=== PATIENT | male | born 1960 | race African-American/Black ===

== ENCOUNTER 2016-10-28 19:19 | Emergency (ER) | payer OTHER ==
[~2016-10-28] VITALS: Ht 177.8 cm; Wt 82.0 kg
[~2016-10-28 19:19] MED LIST: AMLO5TAB4 PO; ASPI-1159 PO; HYOS0.122 PO; INSU3INS6 SUBCUT; METO-293 PO; OMEP20CA10 PO; ONDA4TAB5 PO; SIMV40TA5 PO
[2016-10-28] MEDS ORDERED: SODIUM CHLORIDE 0.9% 1,000 ML IV ONE (19:39)
[2016-10-28 20:04] LABS: BASOPHILS % 0.4 % (0.0-2.0); EOSINOPHILS % 0.6 % (0.0-5.0); HEMATOCRIT. 41.1 % (42.0-52.0); HEMOGLOBIN. 13.8 g/dL (14.0-18.0); LYMPHOCYTES % 24.6 % (20.0-50.0); MEAN CORPUSCULAR HEMOGLOBIN 29.3 pg (28.0-32.0); MEAN CORPUSCULAR VOLUME 87.1 fL (80.0-94.0); MEAN PLATELET VOLUME 7.2 fl (7.4-10.4); MONOCYTES % 4.3 % (2.0-8.0); NEUTROPHILS % 70.1 % (40.0-76.0); PLATELET 204 x1000/uL (130-400); RED BLOOD CELL COUNT 4.72 mill/uL (4.7-6.1); RED CELL DISTRIBUTION WIDTH 13.5 % (11.6-14.6)
[2016-10-28 20:09] LABS: PROTHROMBIN TIME 10.1 sec
[2016-10-28 20:14] LABS: AMMONIA 28 uMol/L (<32)
[2016-10-28 20:18] LABS: CARBON DIOXIDE 24 mEq/L (21-32); CHLORIDE 108 mEq/L (98-107); PHENYTOIN 1.1 ug/mL (10-20); TROPONIN I < 0.02 ng/mL (0.00-0.04)
[2016-10-28 20:20] LABS: CREATINE KINASE 196 IU/L (39-308)
[2016-10-28 20:21] LABS: CARBAMAZEPINE < 0.5 ug/mL (4-12); ETHANOL BLOOD 328 mg/dL; VALPROIC ACID < 3.0 ug/mL (50-100)
[2016-10-28 20:24] LABS: PHENOBARBITAL < 2.1 ug/mL (15.0-40.0)
[2016-10-28 20:42] LABS: BG BASE EXCESS -3.5 mmol/L (-2.0-2.0); BG CARBOXYHEMOGLOBIN 0.4 % (0.5-1.5); BG DEOXYHEMOGLOBIN 6.6 % (0.0-5.0); BG FRACTION INSPIRED OXYGEN 21; BG HCO3 ACT 21.7 mmol/L (22.0-26.0); BG METHEMOGLOBIN 0.3 % (0.0-1.5); BG OXYGEN SATURATION 93.4 % (92.0-98.5); BG OXYHEMOGLOBIN 92.7 % (94.0-97.0); BG PCO2 39.7 mmHg (35.0-45.0); BG PH 7.355 (7.350-7.450); BG PO2 81.9 mmHg (75.0-100.0); BG SAMPLE SITE LEFT BRACHIAL; BG TOTAL HEMOGLOBIN 13.9 g/dL (12.0-18.0); BG VENT MODE ROOM AIR
[2016-10-28] MEDS ORDERED: FOLIC ACID 1 MG, THIAMINE HCL 100 MG, MVI, ADULT NO.1 10 ML in DEXTROSE 5% WATER 1,000 ML IV ONE ×4 (22:15)
[2016-10-28 22:19] LABS: CLARITY URINE CLEAR (CLEAR); COLOR URINE YELLOW (YELLOW); GLUCOSE URINE NEGATIVE (NEGATIVE); KETONES URINE NEGATIVE (NEGATIVE); LEUKOCYTE ESTERASE URINE NEGATIVE (NEGATIVE); NITRITE URINE NEGATIVE (NEGATIVE); OCCULT BLOOD URINE NEGATIVE (NEGATIVE); PROTEIN URINE NEGATIVE (NEGATIVE); SPECIFIC GRAVITY URINE 1.013 (1.005-1.030); UROBILINOGEN URINE 0.2 E.U./dL (0.2-1.0)
[2016-10-28 22:46] LABS: *AMPHETAMINES SCREEN URINE NEGATIVE (NEGATIVE); *BARBITURATES SCREEN URINE NEGATIVE (NEGATIVE); *BENZODIAZEPINES SCREEN URINE PRESUMTIVE POSITIVE (NEGATIVE); *COCAINE SCREEN URINE NEGATIVE (NEGATIVE); CANNABINOID URINE SCREEN PRESUMTIVE POSITIVE (NEGATIVE); METHADONE URINE SCREEN NEGATIVE (NEGATIVE); OPIATES URINE SCREEN NEGATIVE (NEGATIVE); PHENCYCLIDINE URINE SCREEN NEGATIVE (NEGATIVE)
[2016-10-28 23:59] VITALS: BP 160/63
== END 2016-10-29 00:15 | disposition home or self-care (01) ==
LOC: ER 19:29 → CANBEDREQ 10-29 00:28
DX: T51.0X1A Toxic effect of ethanol, accidental (unintentional), initial encounter (principal); G93.40 Encephalopathy, unspecified; E11.649 Type 2 diabetes mellitus with hypoglycemia without coma; I10 Essential (primary) hypertension; Z79.4 Long term (current) use of insulin; Z79.82 Long term (current) use of aspirin; Z88.1 Allergy status to other antibiotic agents; Y92.89 Other specified places as the place of occurrence of the external cause
CPT/HCPCS: 36415; 36600; 70450; 71010; 80053; 80156; 80165; 80184; 80185; 80305; 81003; 82140; 82375; 82550; 82805; 82962; 83880; 84443; 84484; 85025; 85610; 93005; 96361; 96365; 96366; 99285; G0482; J3411; J3490; J7030; J7070; Z7610

== ENCOUNTER 2020-06-18 21:42 | Emergency (ER) | payer OTHER ==
[~2020-06-18] VITALS: Ht 180.3 cm; Wt 114.0 kg
[~2020-06-18 21:42] MED LIST changes: -ASPI-1159 PO; +ASPI-1497 PO; -OMEP20CA10 PO; +OMEP20CA14 PO; +SIMV-46 PO; -SIMV40TA5 PO
[2020-06-18 21:54] VITALS: BP 158/93
== END 2020-06-18 22:32 | disposition left against medical advice (07) ==
LOC: ER 21:42
DX: T75.89XA Other specified effects of external causes, initial encounter (principal); I49.9 Cardiac arrhythmia, unspecified; X58.XXXA Exposure to other specified factors, initial encounter; Y93.89 Activity, other specified; Y92.89 Other specified places as the place of occurrence of the external cause; Y99.8 Other external cause status
CPT/HCPCS: 93005; 99281; 99283

== ENCOUNTER 2021-11-03 11:25 | Inpatient (IN) | payer OTHER ==
[~2021-11-03] VITALS: Ht 175.3 cm; Wt 98.4 kg
[2021-11-03] MEDS ORDERED: DEXTROSE 50% WATER 50ML SYRINGE IV ONE (11:45)
[2021-11-03] MEDS ORDERED: SODIUM CHLORIDE 0.9% 1,000 ML IV ONE ×2 (11:45→13:45)
[2021-11-03 12:10] LABS: BASOPHILS % 0.9 % (0.0-2.0); EOSINOPHILS % 1.6 % (0.0-5.0); HEMATOCRIT. 35.7 % (42.0-52.0); HEMOGLOBIN. 11.8 g/dL (14.0-18.0); MEAN CORPUSCULAR HEMOGLOBIN 29.6 pg (28.0-32.0); MEAN CORPUSCULAR VOLUME 89.6 fL (80.0-94.0); MEAN PLATELET VOLUME 8.2 fl (7.4-10.4); MONOCYTES % 11.2 % (2.0-8.0); NEUTROPHILS % 37.3 % (40.0-76.0); PLATELET 183 x1000/uL (130-400); RED BLOOD CELL COUNT 3.98 mill/uL (4.7-6.1); RED CELL DISTRIBUTION WIDTH 15.4 % (11.6-14.6)
[2021-11-03 12:16] LABS: CHLORIDE 107 mEq/L (98-107)
[2021-11-03 12:28] LABS: ETHANOL BLOOD 224 mg/dL
[2021-11-03] MEDS ORDERED: VANCOMYCIN 1G PREMIX 200 ML IV ONE (16:30)
[2021-11-03] MEDS ORDERED: CEFEPIME 2,000 MG in DEXT 5% WATER 100 ML IV SCH (16:30)
[2021-11-03 16:43] LABS: CLARITY URINE CLEAR (CLEAR); COLOR URINE YELLOW (YELLOW); KETONES URINE 2+ (NEGATIVE); LEUKOCYTE ESTERASE URINE NEGATIVE (NEGATIVE); NITRITE URINE NEGATIVE (NEGATIVE); OCCULT BLOOD URINE NEGATIVE (NEGATIVE); PH URINE 5.5 (4.5-8.0); PROTEIN URINE NEGATIVE (NEGATIVE); SPECIFIC GRAVITY URINE 1.019 (1.005-1.030); UROBILINOGEN URINE 0.2 E.U./dL (0.2-1.0)
[2021-11-03] MEDS ORDERED: IOHEXOL-350 100 ML BOTTLE ONE (16:49)
[2021-11-03] MEDS ORDERED: VANCOMYCIN 1GM PMX (XELLIA) 200 ML IV NR (17:15)
[2021-11-03 17:28] LABS: *AMPHETAMINES SCREEN URINE NEGATIVE (NEGATIVE); *BARBITURATES SCREEN URINE NEGATIVE (NEGATIVE); *BENZODIAZEPINES SCREEN URINE NEGATIVE (NEGATIVE); *COCAINE SCREEN URINE NEGATIVE (NEGATIVE); CANNABINOID URINE SCREEN PRESUMTIVE POSITIVE (NEGATIVE); METHADONE URINE SCREEN NEGATIVE (NEGATIVE); OPIATES URINE SCREEN NEGATIVE (NEGATIVE); PHENCYCLIDINE URINE SCREEN NEGATIVE (NEGATIVE)
[2021-11-03 18:01] LABS: CREATINE KINASE 190 IU/L (39-308); CREATINE KINASE MB FRACTION < 1.0 ng/mL (0.5-3.6); T4 FREE 1.23 ng/dL (0.76-1.46)
[2021-11-03 18:06] LABS: BG BASE EXCESS -6.5 mmol/L (-2.0-2.0); BG CARBOXYHEMOGLOBIN 0.3 % (0.5-1.5); BG DEOXYHEMOGLOBIN 3.9 % (0.0-5.0); BG FRACTION INSPIRED OXYGEN 21; BG HCO3 ACT 16.9 mmol/L (22.0-26.0); BG METHEMOGLOBIN 0.4 % (0.0-1.5); BG OXYGEN SATURATION 96.1 % (92.0-98.5); BG OXYHEMOGLOBIN 95.4 % (94.0-97.0); BG PCO2 28.3 mmHg (35.0-45.0); BG PH 7.395 (7.350-7.450); BG PO2 87.2 mmHg (75.0-100.0); BG SAMPLE SITE LEFT RADIAL; BG TOTAL HEMOGLOBIN 12.9 g/dL (12.0-18.0); BG VENT MODE ROOM AIR
[2021-11-03] MEDS ORDERED: NITROGLYCERIN 0.4MG TABLET SL SL PRN (19:30)
[2021-11-03] MEDS ORDERED: MAGNESIUM/ALUMINUM HYDROXIDE/SIMETHICONE 30ML UDC PO PRN (19:30)
[2021-11-03] MEDS ORDERED: IPRATROPIUM/ALBUTEROL 0.5-3(2.5)MG/3ML NEB NEB PRN (19:30)
[2021-11-03] MEDS ORDERED: NA PHOS,M-B/NA PHOS,DI-BA ENEMA 118ML PR PRN (19:30)
[2021-11-03] MEDS ORDERED: ACETAMINOPHEN 325MG TABLET PO PRN ×2 (19:30)
[2021-11-03] MEDS ORDERED: GUAIFENESIN 200MG/10ML SUGAR FREE UDC PO PRN (19:30)
[2021-11-03] MEDS ORDERED: DOCUSATE SODIUM 100MG CAPSULE PO PRN (19:30)
[2021-11-03] MEDS: ENOXAPARIN 40MG/0.4ML SYR SUBCUT SCH (20:00)
[2021-11-03] MEDS ORDERED: MVI, ADULT NO.1 10 ML, FOLIC ACID 1 MG, THIAMINE HCL 100 MG in SODIUM CHLORIDE 0.9% 1,0... IV ONE ×4 (20:00)
[2021-11-03] MEDS ORDERED: LEVOFLOXACIN 500MG PREMIX 100 ML IV SCH (20:00)
[2021-11-03 20:15] LABS: CREATINE KINASE 211 IU/L (39-308); CREATINE KINASE MB FRACTION < 1.0 ng/mL (0.5-3.6)
[2021-11-03 20:33] LABS: FOLIC ACID (FOLATE) SERUM 19.3 ng/mL (>5.38)
[2021-11-03] MEDS ORDERED: ZOLPIDEM TARTRATE 5MG TABLET PO PRN (21:00)
[2021-11-03] MEDS: FAMOTIDINE 20MG TABLET PO SCH (21:45)
[2021-11-03] MEDS: METOPROLOL TARTRATE 25MG TABLET PO SCH (21:45)
[2021-11-03 21:57] VITALS: BP 149/67
[2021-11-03] MEDS ORDERED: DEXTROSE 50% WATER 50ML SYRINGE IV PRN (22:45)
[2021-11-03] MEDS: KETOROLAC 15MG/ML VIAL IV PRN (23:46)
[2021-11-04] VITALS (27 sets, daily range): BP systolic 114–187; BP diastolic 55–92
[2021-11-04] MEDS: ONDANSETRON HCL 4MG/2ML INJ IV PRN ×2 (02:38→06:38)
[2021-11-04] MEDS: KETOROLAC 15MG/ML VIAL IV PRN ×3 (05:55→19:02)
[2021-11-04] MEDS: CEFTRIAXONE 1,000 MG in DEXTROSE 5% WATER 50 ML IV SCH (06:05)
[2021-11-04 06:44] LABS: HEMOGLOBIN. 12.6 g/dL (14.0-18.0); MEAN CORPUSCULAR HEMOGLOBIN 30.2 pg (28.0-32.0); MEAN CORPUSCULAR VOLUME 96.1 fL (80.0-94.0); MEAN PLATELET VOLUME 9.4 fl (7.4-10.4); PLATELET 228 x1000/uL (130-400); RED BLOOD CELL COUNT 4.16 mill/uL (4.7-6.1)
[2021-11-04 07:09] LABS: CHLORIDE 98 mEq/L (98-107)
[2021-11-04] MEDS ORDERED: BLOOD SUGAR DIAGNOSTIC STRIP TEST SCH (07:20)
[2021-11-04 07:25] LABS: CREATINE KINASE 208 IU/L (39-308); PHOSPHORUS 5.3 mg/dL (2.5-4.9)
[2021-11-04] MEDS ORDERED: INSULIN LISPRO 100 UNITS/ML SUBCUT SCH (07:50)
[2021-11-04] MEDS: METOPROLOL TARTRATE 25MG TABLET PO SCH ×2 (08:27→20:54)
[2021-11-04] MEDS: ASPIRIN 325MG EC TABLET PO SCH (08:29)
[2021-11-04] MEDS: CLONIDINE 0.1MG TABLET PO PRN (08:29)
[2021-11-04] MEDS: FAMOTIDINE 20MG TABLET PO SCH ×2 (08:29→20:54)
[2021-11-04] MEDS ORDERED: SODIUM CHLORIDE 0.9% 1,000 ML IV ONE (08:30)
[2021-11-04] MEDS ORDERED: SODIUM BICARBONATE 8.4% 1 MEQ/ML 50ML SYR IV NR (08:30)
[2021-11-04] MEDS ORDERED: INSULIN REGULAR (HUMULIN R) 300UNITS/3ML VIAL IV NR (08:30)
[2021-11-04] MEDS ORDERED: INSULIN REGULAR (DRIP) 100 UNITS in SODIUM CHLORIDE 0.9% 100 ML IV SCH (08:30)
[2021-11-04 08:36] LABS: BG BASE EXCESS -24.6 mmol/L (-2.0-2.0); BG CARBOXYHEMOGLOBIN 0.3 % (0.5-1.5); BG DEOXYHEMOGLOBIN 1.9 % (0.0-5.0); BG HCO3 ACT 3.1 mmol/L (22.0-26.0); BG METHEMOGLOBIN 0.7 % (0.0-1.5); BG OXYGEN SATURATION 98.1 % (92.0-98.5); BG OXYHEMOGLOBIN 97.1 % (94.0-97.0); BG PCO2 10.5 mmHg (35.0-45.0); BG PH 7.083 (7.350-7.450); BG PO2 142.3 mmHg (75.0-100.0); BG SAMPLE SITE RIGHT RADIAL; BG TOTAL HEMOGLOBIN 13.3 g/dL (12.0-18.0); BG VENT MODE NASAL CANNULA
[2021-11-04] MEDS ORDERED: CEFTRIAXONE 1 G PREMIX 50 ML IV SCH (09:00)
[2021-11-04] MEDS ORDERED: CEFTRIAXONE 1,000 MG in DEXTROSE 5% WATER 50 ML IV SCH (09:00)
[2021-11-04] MEDS ORDERED: LIDOCAINE HCL/PF 1% 10 MG/ML 5ML VIAL ONE (09:18)
[2021-11-04] MEDS ORDERED: MAGNESIUM 2 G PREMIX 50 ML IV NR (09:30)
[2021-11-04] MEDS ORDERED: DEXTROSE 50% WATER 50ML SYRINGE IV PRN ×2 (09:30)
[2021-11-04] MEDS: BLOOD SUGAR DIAGNOSTIC STRIP TEST SCH ×15 (09:36→23:30)
[2021-11-04] MEDS ORDERED: SODIUM CHLORIDE 0.9% 1000ML BAG (SEPSIS BOLUS) IV NR (10:00)
[2021-11-04 10:50] LABS: CHLORIDE 99 mEq/L (98-107)
[2021-11-04] MEDS: INSULIN REGULAR 100U/100ML PMX 100 ML IV SCH ×2 (10:56→15:57)
[2021-11-04 11:51] LABS: BETA HYDROXYBUTYRATE 10.9 mMol/L (0.0-0.3)
[2021-11-04] MEDS ORDERED: DEXT 5%/0.9% NACL KCL 20MEQ/L 1,000 ML IV SCH (13:15)
[2021-11-04 14:21] LABS: PLATELET ESTIMATE NORMAL
[2021-11-04 17:37] LABS: CHLORIDE 108 mEq/L (98-107)
[2021-11-04] MEDS: LEVOFLOXACIN 500MG PREMIX 100 ML IV SCH (17:40)
[2021-11-04 18:02] LABS: PHOSPHORUS 0.9 mg/dL (2.5-4.9)
[2021-11-04] MEDS ORDERED: SODIUM PHOS,M-BASIC-D-BASIC 30 MM in DEXT 5% WATER 500 ML IV NR (20:00)
[2021-11-04] MEDS: ENOXAPARIN 40MG/0.4ML SYR SUBCUT SCH (20:55)
[2021-11-05] VITALS (31 sets, daily range): BP systolic 113–171; BP diastolic 53–93
[2021-11-05] MEDS: BLOOD SUGAR DIAGNOSTIC STRIP TEST SCH ×12 (00:30→21:29)
[2021-11-05] MEDS: KETOROLAC 15MG/ML VIAL IV PRN ×4 (01:02→19:39)
[2021-11-05 05:34] LABS: BASOPHILS % 0.5 % (0.0-2.0); EOSINOPHILS % 0.3 % (0.0-5.0); HEMOGLOBIN. 11.8 g/dL (14.0-18.0); LYMPHOCYTES % 18.2 % (20.0-50.0); MEAN CORPUSCULAR HEMOGLOBIN 29.7 pg (28.0-32.0); MEAN CORPUSCULAR VOLUME 90.5 fL (80.0-94.0); MEAN PLATELET VOLUME 8.6 fl (7.4-10.4); PLATELET 176 x1000/uL (130-400); RED BLOOD CELL COUNT 3.98 mill/uL (4.7-6.1); RED CELL DISTRIBUTION WIDTH 16.5 % (11.6-14.6)
[2021-11-05 05:51] LABS: CHLORIDE 110 mEq/L (98-107)
[2021-11-05] MEDS: CEFTRIAXONE 1,000 MG in DEXTROSE 5% WATER 50 ML IV SCH (06:09)
[2021-11-05] MEDS: ASPIRIN 325MG EC TABLET PO SCH (08:43)
[2021-11-05] MEDS: FAMOTIDINE 20MG TABLET PO SCH ×2 (08:43→21:29)
[2021-11-05] MEDS: METOPROLOL TARTRATE 25MG TABLET PO SCH ×2 (08:44→21:29)
[2021-11-05] MEDS ORDERED: DEXT 5%/0.9% NACL KCL 20MEQ/L 1,000 ML IV SCH (09:30)
[2021-11-05] MEDS ORDERED: DEXTROSE 50% WATER 50ML SYRINGE IV PRN (09:30)
[2021-11-05] MEDS: INSULIN GLARGINE 100 UNITS/ML SUBCUT SCH (10:21)
[2021-11-05] MEDS: INSULIN LISPRO 100 UNITS/ML SUBCUT SCH ×6 (13:04→17:25)
[2021-11-05] MEDS: LEVOFLOXACIN 500MG PREMIX 100 ML IV SCH (17:24)
[2021-11-05] MEDS: ENOXAPARIN 30MG/0.3ML SYR SUBCUT SCH (21:29)
[2021-11-06] VITALS (24 sets, daily range): BP systolic 142–172; BP diastolic 65–100
[2021-11-06] MEDS: KETOROLAC 15MG/ML VIAL IV PRN ×3 (01:35→14:23)
[2021-11-06 05:33] LABS: BASOPHILS % 0.2 % (0.0-2.0); EOSINOPHILS % 0.3 % (0.0-5.0); HEMATOCRIT. 34.9 % (42.0-52.0); HEMOGLOBIN. 11.5 g/dL (14.0-18.0); LYMPHOCYTES % 33.6 % (20.0-50.0); MEAN CORPUSCULAR HEMOGLOBIN 29.6 pg (28.0-32.0); MEAN CORPUSCULAR VOLUME 89.7 fL (80.0-94.0); MEAN PLATELET VOLUME 8.1 fl (7.4-10.4); MONOCYTES % 9.5 % (2.0-8.0); NEUTROPHILS % 56.4 % (40.0-76.0); PLATELET 163 x1000/uL (130-400); RED BLOOD CELL COUNT 3.89 mill/uL (4.7-6.1); RED CELL DISTRIBUTION WIDTH 16.1 % (11.6-14.6)
[2021-11-06 05:47] LABS: CHLORIDE 113 mEq/L (98-107)
[2021-11-06] MEDS: CEFTRIAXONE 1,000 MG in DEXTROSE 5% WATER 50 ML IV SCH (06:06)
[2021-11-06 06:08] LABS: PHOSPHORUS 1.6 mg/dL (2.5-4.9)
[2021-11-06] MEDS: BLOOD SUGAR DIAGNOSTIC STRIP TEST SCH ×4 (08:04→21:48)
[2021-11-06] MEDS: INSULIN LISPRO 100 UNITS/ML SUBCUT SCH ×5 (08:04→21:00)
[2021-11-06] MEDS: METOPROLOL TARTRATE 25MG TABLET PO SCH ×2 (08:06→21:38)
[2021-11-06] MEDS: ASPIRIN 325MG EC TABLET PO SCH (08:06)
[2021-11-06] MEDS: FAMOTIDINE 20MG TABLET PO SCH ×2 (08:06→20:47)
[2021-11-06] MEDS: ENOXAPARIN 30MG/0.3ML SYR SUBCUT SCH ×2 (08:07→21:39)
[2021-11-06] MEDS: INSULIN GLARGINE 100 UNITS/ML SUBCUT SCH (10:05)
[2021-11-06] MEDS ORDERED: SODIUM PHOS,M-BASIC-D-BASIC 20 MM in DEXT 5% WATER 243.3333 ML IV NR (13:00)
[2021-11-06] MEDS: LEVOFLOXACIN 500MG PREMIX 100 ML IV SCH (18:14)
[2021-11-07] VITALS (13 sets, daily range): BP systolic 124–197; BP diastolic 68–111
[2021-11-07] MEDS: CEFTRIAXONE 1,000 MG in DEXTROSE 5% WATER 50 ML IV SCH (06:18)
[2021-11-07] MEDS: BLOOD SUGAR DIAGNOSTIC STRIP TEST SCH ×2 (07:50→13:08)
[2021-11-07] MEDS ORDERED: INSLIS SUBCUT (09:50)
[2021-11-07] MEDS ORDERED: INSU100I28 SQ (09:50)
[2021-11-07] MEDS ORDERED: AMLO10TA4 MT (09:50)
[2021-11-07] MEDS ORDERED: ATOR20TA MT (09:50)
[2021-11-07] MEDS ORDERED: AMLODIPINE 10MG TABLET PO SCH (10:00)
[2021-11-07] MEDS: INSULIN GLARGINE 100 UNITS/ML SUBCUT SCH (10:05)
[2021-11-07] MEDS: INSULIN LISPRO 100 UNITS/ML SUBCUT SCH ×2 (10:05→13:20)
[2021-11-07] MEDS: FAMOTIDINE 20MG TABLET PO SCH (10:06)
[2021-11-07] MEDS: ASPIRIN 325MG EC TABLET PO SCH (10:06)
[2021-11-07] MEDS: CLONIDINE 0.1MG TABLET PO PRN (10:06)
[2021-11-07] MEDS: METOPROLOL TARTRATE 25MG TABLET PO SCH (10:06)
[2021-11-07] MEDS: ENOXAPARIN 30MG/0.3ML SYR SUBCUT SCH (10:31)
[2021-11-07] MEDS ORDERED: LEVO500T90 MT (11:20)
== END 2021-11-07 16:00 | disposition home or self-care (01) | DRG 871 ==
LOC: ER 11:50 → 6WST 18:08 → ENRESERV 21:05 → CVICU 11-04 08:43
PROVIDERS: ADMIT Internal Medicine; ATTEND Internal Medicine
PROC: 02HV33Z Insertion of Infusion Device into Superior Vena Cava, Percutaneous Approach (ICD-10-PCS; principal; 2021-11-04)
PROC: B548ZZA Ultrasonography of Superior Vena Cava, Guidance (ICD-10-PCS; 2021-11-04)
DX: A41.9 Sepsis, unspecified organism (principal); E11.10 Type 2 diabetes mellitus with ketoacidosis without coma; G92.8 Other toxic encephalopathy; D63.8 Anemia in other chronic diseases classified elsewhere; E78.00 Pure hypercholesterolemia, unspecified; I10 Essential (primary) hypertension; F10.10 Alcohol abuse, uncomplicated; E11.649 Type 2 diabetes mellitus with hypoglycemia without coma; F20.9 Schizophrenia, unspecified; Z20.822 Contact with and (suspected) exposure to COVID-19; Y90.9 Presence of alcohol in blood, level not specified; R65.20 Severe sepsis without septic shock; R79.89 Other specified abnormal findings of blood chemistry; Z88.1 Allergy status to other antibiotic agents; Z79.82 Long term (current) use of aspirin; Z79.899 Other long term (current) drug therapy; Z79.4 Long term (current) use of insulin
CPT/HCPCS: 36415; 36573; 36600; 70496; 70498; 71045; 71275; 74174; 80053; 80061; 80305; 80307; 80320; 80329; 81003; 82010; 82140; 82375; 82550; 82553; 82607; 82746; 82805; 82962; 83036; 83540; 83550; 83605; 83735; 84100; 84439; 84443; 84484; 85025; 87426; 93005; 93306; 93970; 99291; C1725; C1893; J0692; J0696; J1650; J1815; J1885; J1956; J2405; J3370; J3411; J3475; J3490; J7030; J7060; Q9967; G0480

== ENCOUNTER 2022-09-19 01:10 | Inpatient (IN) | payer OTHER ==
[~2022-09-19] VITALS: Ht 170.2 cm; Wt 81.7 kg
[2022-09-19] VITALS (28 sets, daily range): BP systolic 127–154; BP diastolic 61–75
[~2022-09-19 01:10] MED LIST changes: +AMLO10TA4 MT; -AMLO5TAB4 PO; +ATOR20TA MT; -HYOS0.122 PO; +INSLIS SUBCUT; +INSU100I28 SQ; -INSU3INS6 SUBCUT; +LEVO-65 MT; -METO-293 PO; -ONDA4TAB5 PO; -SIMV-46 PO
[2022-09-19] MEDS ORDERED: MORPHINE SULFATE 4 MG/ML CPJ (NOT FOR IM USE) IV STA (01:55)
[2022-09-19] MEDS ORDERED: ONDANSETRON HCL 4MG/2ML INJ IV STA (01:55)
[2022-09-19] MEDS ORDERED: SODIUM CHLORIDE 0.9% 1,000 ML IV ONE ×2 (02:00)
[2022-09-19 02:32] LABS: CLARITY URINE CLEAR (CLEAR); COLOR URINE YELLOW (YELLOW); HEMATOCRIT. 38.7 % (42.0-52.0); HEMOGLOBIN. 12.3 g/dL (14.0-18.0); KETONES URINE 4+ (NEGATIVE); LEUKOCYTE ESTERASE URINE NEGATIVE (NEGATIVE); MEAN CORPUSCULAR HEMOGLOBIN 31.5 pg (28.0-32.0); MEAN CORPUSCULAR VOLUME 99.3 fL (80.0-94.0); MEAN PLATELET VOLUME 8.7 fl (7.4-10.4); NITRITE URINE NEGATIVE (NEGATIVE); OCCULT BLOOD URINE NEGATIVE (NEGATIVE); PLATELET 255 x1000/uL (130-400); PROTEIN URINE NEGATIVE (NEGATIVE); RED BLOOD CELL COUNT 3.89 mill/uL (4.7-6.1); RED CELL DISTRIBUTION WIDTH 17.2 % (11.6-14.6); SPECIFIC GRAVITY URINE 1.019 (1.005-1.030); UROBILINOGEN URINE 0.2 E.U./dL (0.2-1.0)
[2022-09-19 02:40] LABS: CHLORIDE 96 mEq/L (98-107)
[2022-09-19 02:47] LABS: *AMPHETAMINES SCREEN URINE NEGATIVE (NEGATIVE); *BARBITURATES SCREEN URINE NEGATIVE (NEGATIVE); *BENZODIAZEPINES SCREEN URINE NEGATIVE (NEGATIVE); *COCAINE SCREEN URINE NEGATIVE (NEGATIVE); BETA HYDROXYBUTYRATE 8.7 mMol/L (0.0-0.3); CANNABINOID URINE SCREEN NEGATIVE (NEGATIVE); ETHANOL BLOOD < 10 mg/dL (-10); METHADONE URINE SCREEN NEGATIVE (NEGATIVE); OPIATES URINE SCREEN NEGATIVE (NEGATIVE); PHENCYCLIDINE URINE SCREEN NEGATIVE (NEGATIVE)
[2022-09-19] MEDS ORDERED: SODIUM CHLORIDE 0.9% 1,000 ML IV STA (03:20)
[2022-09-19] MEDS ORDERED: INSULIN REGULAR (DRIP) 100 UNITS in SODIUM CHLORIDE 0.9% 100 ML IV ONE (03:30)
[2022-09-19 04:36] LABS: PLATELET ESTIMATE NORMAL
[2022-09-19 06:11] LABS: PHOSPHORUS 6.9 mg/dL (2.5-4.9)
[2022-09-19 06:13] LABS: BG CARBOXYHEMOGLOBIN 0.3 % (0.5-1.5); BG DEOXYHEMOGLOBIN 2.6 % (0.0-5.0); BG FRACTION INSPIRED OXYGEN 21; BG HCO3 ACT 5.4 mmol/L (22.0-26.0); BG METHEMOGLOBIN 0.5 % (0.0-1.5); BG OXYGEN SATURATION 97.4 % (92.0-98.5); BG OXYHEMOGLOBIN 96.6 % (94.0-97.0); BG PCO2 15.6 mmHg (35.0-45.0); BG PH 7.161 (7.350-7.450); BG PO2 119.3 mmHg (75.0-100.0); BG SAMPLE SITE RIGHT BRACHIAL; BG TOTAL HEMOGLOBIN 12.6 g/dL (12.0-18.0); BG VENT MODE ROOM AIR
[2022-09-19] MEDS ORDERED: ALBUTEROL (0.083%) 2.5MG/3ML NEB HHN NR (06:30)
[2022-09-19] MEDS ORDERED: SODIUM BICARBONATE 8.4% 1 MEQ/ML 50ML SYR IV NR (06:30)
[2022-09-19] MEDS ORDERED: CALCIUM CHLORIDE 1GM/10ML SYR IV NR (06:30)
[2022-09-19 08:02] LABS: PHOSPHORUS 3.3 mg/dL (2.5-4.9)
[2022-09-19] MEDS ORDERED: ONDANSETRON HCL 4MG/2ML INJ IV PRN (09:45)
[2022-09-19] MEDS ORDERED: ACETAMINOPHEN 325MG TABLET PO PRN (09:45)
[2022-09-19] MEDS ORDERED: INSULIN REGULAR (DRIP) 100 UNITS in SODIUM CHLORIDE 0.9% 99 ML IV ONE (10:15)
[2022-09-19] MEDS ORDERED: INSULIN REGULAR 100U/100ML PMX 100 ML IV SCH (10:15)
[2022-09-19] MEDS ORDERED: BLOOD SUGAR DIAGNOSTIC STRIP TEST SCH (10:15)
[2022-09-19] MEDS ORDERED: DEXTROSE 50% WATER 50ML SYRINGE IV PRN ×3 (10:15→20:15)
[2022-09-19] MEDS: BLOOD SUGAR DIAGNOSTIC STRIP TEST SCH ×10 (10:20→21:38)
[2022-09-19] MEDS: SODIUM CHLORIDE 0.9% 1,000 ML IV SCH ×4 (10:30→22:40)
[2022-09-19] MEDS ORDERED: MAGNESIUM 2 G PREMIX 50 ML IV NR (10:30)
[2022-09-19 13:29] LABS: PHOSPHORUS 0.8 mg/dL (2.5-4.9)
[2022-09-19] MEDS ORDERED: POTASSIUM PHOS,M-BASIC-D-BASIC 30 MMOL in SODIUM CHLORIDE 0.9% 500 ML IV NR (15:30)
[2022-09-19] MEDS ORDERED: INSULIN GLARGINE 100 UNITS/ML SUBCUT SCH (22:00)
[2022-09-19] MEDS: INSULIN LISPRO 100 UNITS/ML SUBCUT SCH (22:07)
[2022-09-20] VITALS (28 sets, daily range): BP systolic 131–192; BP diastolic 65–91
[2022-09-20] MEDS: SODIUM CHLORIDE 0.9% 1,000 ML IV SCH (03:55)
[2022-09-20 06:10] LABS: BASOPHILS % 0.3 % (0.0-2.0); EOSINOPHILS % 0.1 % (0.0-5.0); HEMATOCRIT. 34.8 % (42.0-52.0); HEMOGLOBIN. 11.5 g/dL (14.0-18.0); LYMPHOCYTES % 19.1 % (20.0-50.0); MEAN CORPUSCULAR HEMOGLOBIN 30.8 pg (28.0-32.0); MEAN CORPUSCULAR VOLUME 93.3 fL (80.0-94.0); MEAN PLATELET VOLUME 8.4 fl (7.4-10.4); NEUTROPHILS % 70.5 % (40.0-76.0); PLATELET 212 x1000/uL (130-400); RED BLOOD CELL COUNT 3.73 mill/uL (4.7-6.1); RED CELL DISTRIBUTION WIDTH 16.3 % (11.6-14.6)
[2022-09-20] MEDS: BLOOD SUGAR DIAGNOSTIC STRIP TEST SCH ×2 (06:23→11:32)
[2022-09-20 06:29] LABS: CHLORIDE 113 mEq/L (98-107)
[2022-09-20 06:37] LABS: PHOSPHORUS 1.8 mg/dL (2.5-4.9)
[2022-09-20] MEDS: INSULIN LISPRO 100 UNITS/ML SUBCUT SCH ×2 (07:00→11:36)
[2022-09-20] MEDS ORDERED: PANTOPRAZOLE SODIUM 40 MG/VIAL IV SCH (09:00)
[2022-09-20] MEDS ORDERED: AMLODIPINE 10MG TABLET PO SCH (10:00)
[2022-09-20] MEDS ORDERED: LOSARTAN POTASSIUM 50 MG TABLET PO SCH (11:00)
[2022-09-20] MEDS ORDERED: SODIUM PHOS,M-BASIC-D-BASIC 15 MM in DEXT 5% WATER 245 ML IV NR (12:00)
[2022-09-20] MEDS ORDERED: POTASSIUM-SODIUM PHOSPHATE POWDER PACKET PO SCH (14:00)
== END 2022-09-20 14:00 | disposition home or self-care (01) | DRG 637 ==
LOC: ER 01:10 → MICUSO 03:24 → EDBEDREQ 03:28 → EDBEDREQTM 03:28
PROVIDERS: ADMIT Internal Medicine; ATTEND Internal Medicine
DX: E11.10 Type 2 diabetes mellitus with ketoacidosis without coma (principal); N17.0 Acute kidney failure with tubular necrosis; E87.1 Hypo-osmolality and hyponatremia; E78.00 Pure hypercholesterolemia, unspecified; D64.9 Anemia, unspecified; E87.5 Hyperkalemia; I10 Essential (primary) hypertension; Z79.4 Long term (current) use of insulin; Z88.1 Allergy status to other antibiotic agents; Z79.899 Other long term (current) drug therapy; Z79.82 Long term (current) use of aspirin
CPT/HCPCS: 36415; 36600; 71045; 80048; 80053; 80305; 80320; 81003; 82010; 82375; 82805; 82962; 83735; 84100; 85025; 93005; 99291; C9113; J1815; J2270; J2405; J3475; J3490; J7030; J7040; J7050; J7060; G0480

== ENCOUNTER 2023-06-11 12:32 | Emergency (ER) | payer OTHER ==
[~2023-06-11] VITALS: Ht 175.3 cm; Wt 73.0 kg
[~2023-06-11 12:32] MED LIST changes: -LEVO-65 MT
[2023-06-11 12:33] VITALS: O2SAT 98
[2023-06-11 14:01] LABS: BASOPHILS % 0.9 % (0.0-2.0); EOSINOPHILS % 2.2 % (0.0-5.0); HEMATOCRIT. 40.1 % (42.0-52.0); HEMOGLOBIN. 13.5 g/dL (14.0-18.0); MEAN CORPUSCULAR HEMOGLOBIN 29.8 pg (28.0-32.0); MEAN CORPUSCULAR HGB CONC 33.7 g/dL (31.0-37.0); MEAN CORPUSCULAR VOLUME 88.3 fL (80.0-94.0); MEAN PLATELET VOLUME 7.7 fl (7.4-10.4); MONOCYTES % 6.7 % (2.0-8.0); NEUTROPHILS % 52.2 % (40.0-76.0); PLATELET 247 x1000/uL (130-400); RED BLOOD CELL COUNT 4.55 mill/uL (4.7-6.1); RED CELL DISTRIBUTION WIDTH 14.9 % (11.6-14.6)
[2023-06-11 14:15] LABS: ALANINE AMINOTRANSFERASE 15 IU/L (10-49); ASPARTATE AMINOTRANSFERASE 27 IU/L (<34); BILIRUBIN TOTAL 0.5 mg/dL (0.1-1.0); CALCIUM 9.5 mg/dL (8.7-10.4); CARBON DIOXIDE 21 mEq/L (21-32); CHLORIDE 110 mEq/L (98-107); CREATININE 1.1 mg/dL (0.6-1.3); ETHANOL BLOOD 235 mg/dL (<10); GLUCOSE 177 mg/dL (70-105); POTASSIUM 4.3 mEq/L (3.5-5.1); PROTEIN TOTAL 7.9 g/dL (6.0-8.3); SODIUM 142 mEq/L (136-145); UREA NITROGEN BLOOD 19 mg/dL (9-23)
[2023-06-11 14:24] VITALS: BP 137/81; PULSE 80; RESP 15; TEMP 98.1
== END 2023-06-11 14:31 | disposition home or self-care (01) ==
LOC: ER 12:32
DX: R41.82 Altered mental status, unspecified (principal); T38.3X5A Adverse effect of insulin and oral hypoglycemic [antidiabetic] drugs, initial encounter; E78.00 Pure hypercholesterolemia, unspecified; E11.9 Type 2 diabetes mellitus without complications; I10 Essential (primary) hypertension; Z88.1 Allergy status to other antibiotic agents; Z79.82 Long term (current) use of aspirin; Y92.9 Unspecified place or not applicable
CPT/HCPCS: 36415; 80053; 80320; 82962; 85025; 93005; 99284; G0480

== ENCOUNTER 2024-01-03 18:19 | Emergency (ER) | payer OTHER ==
[~2024-01-03] VITALS: Ht 175.3 cm; Wt 90.0 kg
[2024-01-03 18:21] VITALS: O2SAT 99
[2024-01-03 19:55] LABS: BASOPHILS % 0.9 % (0.0-2.0); EOSINOPHILS % 1.6 % (0.0-5.0); HEMATOCRIT. 41.3 % (42.0-52.0); HEMOGLOBIN. 13.5 g/dL (14.0-18.0); LYMPHOCYTES % 58.7 % (20.0-50.0); MEAN CORPUSCULAR HEMOGLOBIN 29.6 pg (28.0-32.0); MEAN CORPUSCULAR HGB CONC 32.7 g/dL (31.0-37.0); MEAN CORPUSCULAR VOLUME 90.5 fL (80.0-94.0); MEAN PLATELET VOLUME 8.1 fl (7.4-10.4); MONOCYTES % 6.3 % (2.0-8.0); NEUTROPHILS % 32.5 % (40.0-76.0); PLATELET 271 x1000/uL (130-400); RED BLOOD CELL COUNT 4.56 mill/uL (4.7-6.1); RED CELL DISTRIBUTION WIDTH 14.9 % (11.6-14.6); WHITE BLOOD COUNT 4.9 x1000/uL (4.5-11.0)
[2024-01-03 20:01] LABS: CHLORIDE 110 mEq/L (98-107); POTASSIUM 4.1 mEq/L (3.5-5.1); SODIUM 145 mEq/L (136-145)
[2024-01-03 20:02] LABS: CALCIUM 9.7 mg/dL (8.7-10.4); CARBON DIOXIDE 22 mEq/L (21-32)
[2024-01-03 20:07] LABS: CREATININE 1.2 mg/dL (0.6-1.3); ETHANOL BLOOD 224 mg/dL (<10); GLUCOSE 182 mg/dL (70-105); TROPONIN I HIGH SENSITIVITY 9 ng/L (3.0-53); UREA NITROGEN BLOOD 15 mg/dL (9-23)
[2024-01-03 20:09] LABS: ALANINE AMINOTRANSFERASE 17 IU/L (10-49); ALBUMIN 4.7 g/dL (3.2-4.8); ASPARTATE AMINOTRANSFERASE 26 IU/L (<34); BILIRUBIN DIRECT 0.1 mg/dL (<=3.0); BILIRUBIN TOTAL 0.5 mg/dL (0.1-1.0); PROTEIN TOTAL 7.6 g/dL (6.0-8.3)
[2024-01-03 20:20] VITALS: BP 148/69; PULSE 95; RESP 16; TEMP 36.94740; O2SAT 99
[2024-01-03 21:45] LABS: INR 0.9; PROTHROMBIN TIME 10.5 sec (9.6-11.0)
== END 2024-01-03 21:01 | disposition home or self-care (01) ==
LOC: ER 18:19
DX: F10.229 Alcohol dependence with intoxication, unspecified (principal); E11.9 Type 2 diabetes mellitus without complications; E78.00 Pure hypercholesterolemia, unspecified; I10 Essential (primary) hypertension; Z79.899 Other long term (current) drug therapy; Y90.7 Blood alcohol level of 200-239 mg/100 ml
CPT/HCPCS: 80076; 80048; 80320; 83690; 85025; 85610; 84484; 36415; 71045; 93005; 99285; Z7610 ×3; G0480

== ENCOUNTER 2024-08-08 14:41 | Inpatient (IN) | payer OTHER ==
[~2024-08-08] VITALS: Ht 175.3 cm; Wt 90.0 kg
[~2024-08-08 14:41] MED LIST changes: +AMLO-905 MT; -AMLO10TA4 MT
[2024-08-08 15:33] LABS: BASOPHILS % 0.7 % (0.0-2.0); DIFFERENTIAL COMMENT 0; EOSINOPHILS % 0.2 % (0.0-5.0); HEMATOCRIT. 41.7 % (42.0-52.0); HEMOGLOBIN. 12.6 g/dL (14.0-18.0); LYMPHOCYTES % 12.5 % (20.0-50.0); MEAN CORPUSCULAR HEMOGLOBIN 29.5 pg (28.0-32.0); MEAN CORPUSCULAR HGB CONC 30.3 g/dL (31.0-37.0); MEAN CORPUSCULAR VOLUME 97.4 fL (80.0-94.0); MEAN PLATELET VOLUME 8.6 fl (7.4-10.4); MONOCYTES % 3.9 % (2.0-8.0); NEUTROPHILS % 82.7 % (40.0-76.0); PLATELET 266 x1000/uL (130-400); RED BLOOD CELL COUNT 4.28 mill/uL (4.7-6.1); WHITE BLOOD COUNT 11.3 x1000/uL (4.5-11.0)
[2024-08-08 15:36] LABS: CHLORIDE 100 mEq/L (98-107); POTASSIUM 6.1 mEq/L (3.5-5.1); SODIUM 139 mEq/L (136-145)
[2024-08-08 15:39] LABS: INR 0.9; PROTHROMBIN TIME 10.2 sec (9.6-11.0)
[2024-08-08 15:42] LABS: ETHANOL BLOOD 217 mg/dL (<10); GLUCOSE 308 mg/dL (70-105); UREA NITROGEN BLOOD 24 mg/dL (9-23)
[2024-08-08 15:44] LABS: TROPONIN I HIGH SENSITIVITY 11 ng/L (3.0-53)
[2024-08-08 15:47] LABS: CARBON DIOXIDE < 10 mEq/L (21-32); CREATININE 2.1 mg/dL (0.6-1.3)
[2024-08-08] MEDS: PANTOPRAZOLE SODIUM 40 MG/VIAL IV ONE (15:51)
[2024-08-08] MEDS: ONDANSETRON HCL 4MG/2ML INJ IV STA (15:52)
[2024-08-08] MEDS ORDERED: POTASSIUM CHLORIDE 40 MEQ in SODIUM CHLORIDE 0.9% 230 ML IV PRN (16:15)
[2024-08-08] MEDS ORDERED: DEXTROSE 50% WATER 50ML SYRINGE IV PRN (16:15)
[2024-08-08] MEDS ORDERED: SODIUM PHOSPHATE 15 MMOL in SODIUM CHLORIDE 0.9% 245 ML IV PRN (16:15)
[2024-08-08] MEDS ORDERED: INSULIN REGULAR (DRIP) 100 UNITS in SODIUM CHLORIDE 0.9% 99 ML IV SCH (16:15)
[2024-08-08] MEDS ORDERED: BLOOD SUGAR DIAGNOSTIC STRIP TEST PRN (16:15)
[2024-08-08] MEDS ORDERED: KCL 20MEQ/100ML PREMIX 100 ML IV PRN (16:15)
[2024-08-08] MEDS ORDERED: MAGNESIUM 2 G PREMIX 50 ML IV PRN (16:15)
[2024-08-08] MEDS: BLOOD SUGAR DIAGNOSTIC STRIP TEST SCH (16:24)
[2024-08-08] MEDS: SODIUM CHLORIDE 0.9% 1,000 ML IV ONE (16:31)
[2024-08-08 16:32] LABS: ALANINE AMINOTRANSFERASE 27 IU/L (10-49); ALBUMIN 4.1 g/dL (3.2-4.8); ASPARTATE AMINOTRANSFERASE 37 IU/L (<34); BILIRUBIN DIRECT 0.1 mg/dL (<=3.0); BILIRUBIN TOTAL 0.4 mg/dL (0.1-1.0); PROTEIN TOTAL 6.4 g/dL (6.0-8.3)
[2024-08-08 16:35] LABS: LACTIC ACID 14.8 mmol/L (0.4-2.0)
[2024-08-08] MEDS: MORPHINE SULFATE 4 MG/ML INJ (FOR IV/IM USE) IV ONE (16:39)
[2024-08-08] MEDS: INSULIN REGULAR 100U/100ML PMX 100 ML IV ONE (17:25)
[2024-08-08] MEDS: CEFTRIAXONE 1GM/50ML 50 ML IV ONE (17:35)
[2024-08-08 18:10] LABS: BG BASE EXCESS -28.3 mmol/L (-2.0-3.0); BG CARBOXYHEMOGLOBIN 0.3 % (0.5-1.5); BG DEOXYHEMOGLOBIN 4.7 % (0.0-5.0); BG FRACTION INSPIRED OXYGEN 21; BG HCO3 ACT 2.9 mmol/L (21.0-28.0); BG METHEMOGLOBIN 0.4 % (0.5-1.5); BG OXYGEN SATURATION 95.3 % (94.0-98.0); BG OXYHEMOGLOBIN 94.6 % (94.0-98.0); BG PCO2 14.4 mmHg (35.0-48.0); BG PH 6.918 (7.350-7.450); BG SAMPLE SITE RIGHT RADIAL; BG TOTAL HEMOGLOBIN 12.7 g/dL (13.5-17.5); BG VENT MODE ROOM AIR
[2024-08-08] MEDS: SODIUM CHLORIDE 0.9% 1,000 ML IV SCH (18:25)
[2024-08-08 18:33] LABS: INFLUENZA TYPE A Presumptive Negative (Pres. Neg.)
[2024-08-08 18:34] LABS: INFLUENZA TYPE B Presumptive Negative (Pres. Neg.)
[2024-08-08 20:30] LABS: CLARITY URINE CLEAR (CLEAR); COLOR URINE YELLOW (YELLOW); GLUCOSE URINE 1+ (NEGATIVE); KETONES URINE 1+ (NEGATIVE); LEUKOCYTE ESTERASE URINE NEGATIVE (NEGATIVE); NITRITE URINE NEGATIVE (NEGATIVE); OCCULT BLOOD URINE TRACE (NEGATIVE); PROTEIN URINE 1+ (NEGATIVE); SPECIFIC GRAVITY URINE 1.015 (1.005-1.030); UROBILINOGEN URINE 0.2 E.U./dL (0.2-1.0)
[2024-08-08 20:46] LABS: BACTERIA URINE 2+; RBC URINE 0-2 /hpf (0-2); SQUAMOUS EPITHELIAL CELL URINE FEW /lpf (RARE/1+); WBC URINE 0-2 /hpf (0-2)
[2024-08-08 20:56] LABS: *AMPHETAMINES SCREEN URINE NEGATIVE (NEGATIVE)
[2024-08-08 20:57] LABS: *BARBITURATES SCREEN URINE NEGATIVE (NEGATIVE); *BENZODIAZEPINES SCREEN URINE NEGATIVE (NEGATIVE); *COCAINE SCREEN URINE NEGATIVE (NEGATIVE); METHADONE URINE SCREEN NEGATIVE (NEGATIVE); OPIATES URINE SCREEN PRESUMPTIVE POSITIVE (NEGATIVE); PHENCYCLIDINE URINE SCREEN NEGATIVE (NEGATIVE)
[2024-08-08 20:58] LABS: CANNABINOID URINE SCREEN PRESUMPTIVE POSITIVE (NEGATIVE); ECSTASY MDMA SCREEN URINE NEGATIVE (NEGATIVE)
[2024-08-08] MEDS: DEXT 5%/0.9% NACL 1,000 ML IV SCH (21:45)
[2024-08-08 23:30] VITALS: BP 130/54; PULSE 100; RESP 32; TEMP 36.4; O2SAT 99
[2024-08-08 23:45] VITALS: BP 146/53; PULSE 96; RESP 29
[2024-08-08 23:58] LABS: CHLORIDE 103 mEq/L (98-107); POTASSIUM 5.4 mEq/L (3.5-5.1); SODIUM 140 mEq/L (136-145)
[2024-08-08 23:59] LABS: CALCIUM 8.7 mg/dL (8.7-10.4)
[2024-08-09] VITALS (40 sets, daily range): BP systolic 130–169; BP diastolic 52–72; PULSE 80–112; RESP 17–32; TEMP 36.5–37.3; O2SAT 93–100
[2024-08-09 00:04] LABS: CREATININE 2.2 mg/dL (0.6-1.3); GLUCOSE 288 mg/dL (70-105); UREA NITROGEN BLOOD 32 mg/dL (9-23)
[2024-08-09] MEDS ORDERED: NALOXONE HCL 0.4MG/ML VIAL IV PRN (00:15)
[2024-08-09] MEDS: MORPHINE SULFATE 2 MG/ML INJ (NOT FOR IM USE) IV PRN (00:26)
[2024-08-09 00:52] LABS: CARBON DIOXIDE 10 mEq/L (21-32)
[2024-08-09] MEDS ORDERED: ACETAMINOPHEN 325MG TABLET PO PRN ×2 (02:15)
[2024-08-09] MEDS ORDERED: ONDANSETRON HCL 4MG/2ML INJ IV PRN (02:15)
[2024-08-09] MEDS ORDERED: DIPHENHYDRAMINE 50MG/ML VIAL IV PRN (02:15)
[2024-08-09] MEDS: INSULIN REGULAR 100U/100ML PMX 100 ML IV SCH (04:44)
[2024-08-09] MEDS: HYDRALAZINE 20MG/ML VIAL IV PRN (04:45)
[2024-08-09] MEDS ORDERED: INSULIN REGULAR 100U/100ML PMX 100 ML IV SCH (05:15)
[2024-08-09] MEDS ORDERED: KCL 20MEQ/100ML PREMIX 100 ML IV PRN (05:15)
[2024-08-09] MEDS ORDERED: SODIUM CHLORIDE 0.9% 1,000 ML IV SCH ×2 (05:15→11:30)
[2024-08-09] MEDS ORDERED: BLOOD SUGAR DIAGNOSTIC STRIP TEST PRN (05:15)
[2024-08-09] MEDS ORDERED: DEXTROSE 50% WATER 50ML SYRINGE IV PRN ×2 (05:15→11:30)
[2024-08-09] MEDS ORDERED: POTASSIUM CHLORIDE 40 MEQ in SODIUM CHLORIDE 0.9% 230 ML IV PRN (05:15)
[2024-08-09] MEDS: ONDANSETRON HCL 4MG/2ML INJ IV PRN (05:35)
[2024-08-09 05:40] LABS: BASOPHILS % 0.1 % (0.0-2.0); HEMOGLOBIN. 10.6 g/dL (14.0-18.0); LYMPHOCYTES % 9.4 % (20.0-50.0); MEAN CORPUSCULAR HEMOGLOBIN 30.4 pg (28.0-32.0); MEAN CORPUSCULAR HGB CONC 34.2 g/dL (31.0-37.0); MEAN CORPUSCULAR VOLUME 88.8 fL (80.0-94.0); MEAN PLATELET VOLUME 8.2 fl (7.4-10.4); MONOCYTES % 10.3 % (2.0-8.0); NEUTROPHILS % 80.2 % (40.0-76.0); PLATELET 222 x1000/uL (130-400); RED CELL DISTRIBUTION WIDTH 14.9 % (11.6-14.6); WHITE BLOOD COUNT 9.2 x1000/uL (4.5-11.0)
[2024-08-09] MEDS: BLOOD SUGAR DIAGNOSTIC STRIP TEST SCH ×2 (05:40→11:33)
[2024-08-09 05:53] LABS: CARBON DIOXIDE 19 mEq/L (21-32); CHLORIDE 109 mEq/L (98-107); POTASSIUM 4.4 mEq/L (3.5-5.1); SODIUM 141 mEq/L (136-145)
[2024-08-09 05:55] LABS: CALCIUM 8.6 mg/dL (8.7-10.4)
[2024-08-09 05:59] LABS: CREATININE 1.8 mg/dL (0.6-1.3); GLUCOSE 212 mg/dL (70-105)
[2024-08-09 06:00] LABS: UREA NITROGEN BLOOD 30 mg/dL (9-23)
[2024-08-09 07:00] LABS: PHOSPHORUS 0.7 mg/dL (2.5-4.9)
[2024-08-09] MEDS: MAGNESIUM 2 G PREMIX 50 ML IV PRN (07:02)
[2024-08-09] MEDS: DEXT 5%/0.9% NACL 1,000 ML IV SCH (07:04)
[2024-08-09] MEDS: SODIUM PHOSPHATE 15 MMOL in SODIUM CHLORIDE 0.9% 245 ML IV PRN (09:27)
[2024-08-09] MEDS: PANTOPRAZOLE SODIUM 40 MG/VIAL IV SCH (09:28)
[2024-08-09 11:04] LABS: CHLORIDE 107 mEq/L (98-107); POTASSIUM 3.8 mEq/L (3.5-5.1); SODIUM 141 mEq/L (136-145)
[2024-08-09 11:05] LABS: CARBON DIOXIDE 23 mEq/L (21-32)
[2024-08-09 11:12] LABS: PHOSPHORUS 1.2 mg/dL (2.5-4.9)
[2024-08-09] MEDS: INSULIN GLARGINE 100 UNITS/ML SUBCUT SCH (11:30)
[2024-08-09] MEDS: INSULIN LISPRO 100 UNITS/ML SUBCUT SCH (11:33)
[2024-08-09] MEDS: POTASSIUM PHOSPHATE 30 MMOL in SODIUM CHLORIDE 0.9% 490 ML IV NR (16:02)
[2024-08-09 16:15] LABS: CHLORIDE 103 mEq/L (98-107); POTASSIUM 4.5 mEq/L (3.5-5.1); SODIUM 138 mEq/L (136-145)
[2024-08-09 16:16] LABS: CARBON DIOXIDE 16 mEq/L (21-32)
[2024-08-09 16:17] LABS: CALCIUM 8.1 mg/dL (8.7-10.4)
[2024-08-09 16:21] LABS: CREATININE 1.6 mg/dL (0.6-1.3); GLUCOSE 315 mg/dL (70-105); UREA NITROGEN BLOOD 27 mg/dL (9-23)
[2024-08-09 16:23] LABS: PHOSPHORUS 2.4 mg/dL (2.5-4.9)
[2024-08-09] MEDS: FOLIC ACID 1 MG, THIAMINE HCL 100 MG, MVI, ADULT NO.1 10 ML in SODIUM CHLORIDE 0.9% 1,0... IV ONE (16:29)
[2024-08-09 21:16] LABS: CHLORIDE 103 mEq/L (98-107); POTASSIUM 5.4 mEq/L (3.5-5.1); SODIUM 136 mEq/L (136-145)
[2024-08-09 21:17] LABS: CARBON DIOXIDE 15 mEq/L (21-32)
[2024-08-09 21:25] LABS: PHOSPHORUS 3.1 mg/dL (2.5-4.9)
[2024-08-10] MEDS ORDERED: INSULIN GLARGINE 100 UNITS/ML SUBCUT SCH (10:00)
== END 2024-08-09 23:35 | disposition short-term general hospital (02) | DRG 638 ==
LOC: ER 14:41 → EDBEDREQ 16:07 → MICUNO 16:45 → EDBEDREQ 16:46 → EDBEDREQSVC 19:11 → 7WST 08-09 18:23
PROVIDERS: ADMIT Internal Medicine; ATTEND Internal Medicine
DX: E11.10 Type 2 diabetes mellitus with ketoacidosis without coma (principal); N17.9 Acute kidney failure, unspecified; E83.39 Other disorders of phosphorus metabolism; I10 Essential (primary) hypertension; Z20.822 Contact with and (suspected) exposure to COVID-19; Z88.1 Allergy status to other antibiotic agents; Z79.82 Long term (current) use of aspirin; Z79.899 Other long term (current) drug therapy; Z87.01 Personal history of pneumonia (recurrent); Z87.891 Personal history of nicotine dependence
CPT/HCPCS: 36415; 36600; 71045; 74176; 80048; 80051; 80076; 80305; 80320; 81003; 82010; 82375; 82805; 82962; 83036; 83605; 83735; 83880; 83930; 84100; 84484; 85025; 87426; 87804; 93005; J0360; J0696; J1815; J2270; J2405; J2470; J3411; J3475; J3490; J7030; J7040; J7042; J7050; G0480

== ENCOUNTER 2024-10-11 06:54 | Inpatient (IN) | payer OTHER ==
[2024-10-11] VITALS (34 sets, daily range): BP systolic 127–166; BP diastolic 52–106; PULSE 72–99; RESP 13–31; TEMP 36.7–36.8; O2SAT 97–100
[~2024-10-11] VITALS: Ht 177.8 cm; Wt 94.3 kg
[2024-10-11] MEDS: KETOROLAC 30MG/ML VIAL IV STA (07:52)
[2024-10-11] MEDS: ONDANSETRON HCL 4MG/2ML INJ IV STA (07:54)
[2024-10-11] MEDS: SODIUM CHLORIDE 0.9% 1,000 ML IV ONE ×2 (07:54→09:39)
[2024-10-11 08:03] LABS: BASOPHILS % 0.7 % (0.0-2.0); EOSINOPHILS % 0.2 % (0.0-5.0); HEMATOCRIT. 40.3 % (42.0-52.0); HEMOGLOBIN. 12.3 g/dL (14.0-18.0); LYMPHOCYTES % 14.3 % (20.0-50.0); MEAN PLATELET VOLUME 9.2 fl (7.4-10.4); MONOCYTES % 4.6 % (2.0-8.0); NEUTROPHILS % 80.2 % (40.0-76.0); PLATELET 223 x1000/uL (130-400); RED BLOOD CELL COUNT 4.28 mill/uL (4.7-6.1); RED CELL DISTRIBUTION WIDTH 15.5 % (11.6-14.6)
[2024-10-11 08:12] LABS: CREATININE 1.7 mg/dL (0.6-1.3); UREA NITROGEN BLOOD 28 mg/dL (9-23)
[2024-10-11] MEDS ORDERED: SODIUM PHOSPHATE 15 MMOL in SODIUM CHLORIDE 0.9% 245 ML IV PRN (08:30)
[2024-10-11] MEDS ORDERED: KCL 20MEQ/100ML PREMIX 100 ML IV PRN (08:30)
[2024-10-11] MEDS: BLOOD SUGAR DIAGNOSTIC STRIP TEST SCH ×2 (08:30→11:24)
[2024-10-11] MEDS ORDERED: DEXTROSE 50% WATER 50ML SYRINGE IV PRN ×2 (08:30→10:30)
[2024-10-11] MEDS: SODIUM CHLORIDE 0.9% 1,000 ML IV SCH ×2 (08:30→22:30)
[2024-10-11] MEDS ORDERED: POTASSIUM CHLORIDE 40 MEQ in SODIUM CHLORIDE 0.9% 230 ML IV PRN ×2 (08:30→10:30)
[2024-10-11] MEDS: DEXT 5%/0.9% NACL 1,000 ML IV SCH ×2 (08:30→11:00)
[2024-10-11] MEDS ORDERED: MAGNESIUM 2 G PREMIX 50 ML IV PRN (08:30)
[2024-10-11] MEDS ORDERED: BLOOD SUGAR DIAGNOSTIC STRIP TEST PRN ×2 (08:30→10:30)
[2024-10-11 08:43] LABS: BG BASE EXCESS -23.7 mmol/L (-2.0-3.0); BG CARBOXYHEMOGLOBIN 0.3 % (0.5-1.5); BG DEOXYHEMOGLOBIN 7.0 % (0.0-5.0); BG FRACTION INSPIRED OXYGEN 21; BG HCO3 ACT 4.3 mmol/L (21.0-28.0); BG METHEMOGLOBIN 0.2 % (0.5-1.5); BG OXYGEN SATURATION 93.0 % (94.0-98.0); BG OXYHEMOGLOBIN 92.5 % (94.0-98.0); BG PCO2 15.1 mmHg (35.0-48.0); BG PH 7.076 (7.350-7.450); BG PO2 94.0 mmHg (83.0-108.0); BG SAMPLE SITE RIGHT RADIAL; BG TOTAL HEMOGLOBIN 13.0 g/dL (13.5-17.5); BG VENT MODE ROOM AIR
[2024-10-11] MEDS ORDERED: INSULIN REGULAR 100U/100ML PMX 100 ML IV SCH (09:00)
[2024-10-11] MEDS: INSULIN REGULAR 100U/100ML PMX 100 ML IV SCH ×2 (10:05→17:13)
[2024-10-11] MEDS: MORPHINE SULFATE 4 MG/ML INJ (FOR IV/IM USE) IV ONE (10:19)
[2024-10-11] MEDS ORDERED: NALOXONE HCL 0.4MG/ML VIAL IV PRN (14:00)
[2024-10-11] MEDS: FAMOTIDINE 20MG/2ML VIAL IV SCH (14:47)
[2024-10-11] MEDS: MORPHINE SULFATE 2 MG/ML INJ (NOT FOR IM USE) IV PRN (14:51)
[2024-10-11 15:33] LABS: PHOSPHORUS 2.8 mg/dL (2.5-4.9)
[2024-10-11] MEDS: MAGNESIUM 2 G PREMIX 50 ML IV PRN (15:50)
[2024-10-11 21:31] LABS: PHOSPHORUS 0.3 mg/dL (2.5-4.9)
[2024-10-11] MEDS: SODIUM PHOSPHATE 15 MMOL in SODIUM CHLORIDE 0.9% 245 ML IV PRN (22:06)
[2024-10-11] MEDS: KCL 20MEQ/100ML PREMIX 100 ML IV PRN (22:38)
[2024-10-12] VITALS (96 sets, daily range): BP systolic 115–192; BP diastolic 54–88; PULSE 61–90; RESP 10–30; TEMP 36.6–37; O2SAT 83–100
[2024-10-12 02:29] LABS: PHOSPHORUS 1.9 mg/dL (2.5-4.9)
[2024-10-12 06:25] LABS: CREATININE 1.2 mg/dL (0.6-1.3)
[2024-10-12 06:26] LABS: UREA NITROGEN BLOOD 21 mg/dL (9-23)
[2024-10-12 06:28] LABS: PHOSPHORUS 2.8 mg/dL (2.5-4.9)
[2024-10-12 08:48] LABS: BG BASE EXCESS -5.2 mmol/L (-2.0-3.0); BG CARBOXYHEMOGLOBIN 0.6 % (0.5-1.5); BG DEOXYHEMOGLOBIN 4.6 % (0.0-5.0); BG FRACTION INSPIRED OXYGEN 21; BG HCO3 ACT 18.2 mmol/L (21.0-28.0); BG METHEMOGLOBIN 0.3 % (0.5-1.5); BG OXYGEN SATURATION 95.4 % (94.0-98.0); BG OXYHEMOGLOBIN 94.5 % (94.0-98.0); BG PCO2 29.0 mmHg (35.0-48.0); BG PH 7.415 (7.350-7.450); BG PO2 73.9 mmHg (83.0-108.0); BG SAMPLE SITE RIGHT BRACHIAL; BG TOTAL HEMOGLOBIN 12.0 g/dL (13.5-17.5); BG VENT MODE ROOM AIR
[2024-10-12] MEDS: INSULIN GLARGINE 100 UNITS/ML SUBCUT SCH ×2 (10:00→21:06)
[2024-10-12 10:28] LABS: PHOSPHORUS 1.9 mg/dL (2.5-4.9)
[2024-10-12] MEDS ORDERED: HYDRALAZINE 20MG/ML VIAL IV PRN ×2 (11:15→19:15)
[2024-10-12] MEDS: SODIUM PHOSPHATE 15 MMOL in DEXT 5% WATER 245 ML IV SCH (12:19)
[2024-10-12] MEDS: ENOXAPARIN 40MG/0.4ML SYR SUBCUT SCH (12:36)
[2024-10-12 17:47] LABS: CREATININE 1.1 mg/dL (0.6-1.3); UREA NITROGEN BLOOD 13 mg/dL (9-23)
[2024-10-12] MEDS ORDERED: DEXTROSE 50% WATER 50ML SYRINGE IV PRN (19:15)
[2024-10-12] MEDS: ONDANSETRON HCL 4MG/2ML INJ IV PRN (19:59)
[2024-10-12] MEDS: BLOOD SUGAR DIAGNOSTIC STRIP TEST SCH (20:56)
[2024-10-12] MEDS: INSULIN LISPRO 100 UNITS/ML SUBCUT SCH (20:56)
[2024-10-13] VITALS (35 sets, daily range): BP systolic 105–198; BP diastolic 67–114; PULSE 62–94; RESP 11–27; TEMP 37–37.1; O2SAT 92–100
[2024-10-13 06:31] LABS: BASOPHILS % 0.4 % (0.0-2.0); EOSINOPHILS % 1.0 % (0.0-5.0); HEMATOCRIT. 35.0 % (42.0-52.0); HEMOGLOBIN. 11.6 g/dL (14.0-18.0); LYMPHOCYTES % 27.9 % (20.0-50.0); MEAN PLATELET VOLUME 8.7 fl (7.4-10.4); MONOCYTES % 5.4 % (2.0-8.0); NEUTROPHILS % 65.3 % (40.0-76.0); PLATELET 157 x1000/uL (130-400); RED BLOOD CELL COUNT 3.94 mill/uL (4.7-6.1); RED CELL DISTRIBUTION WIDTH 15.0 % (11.6-14.6)
[2024-10-13 06:54] LABS: CREATININE 1.0 mg/dL (0.6-1.3); UREA NITROGEN BLOOD 9 mg/dL (9-23)
[2024-10-13 06:56] LABS: PHOSPHORUS 2.4 mg/dL (2.5-4.9)
[2024-10-13] MEDS: MAGNESIUM 4 G PREMIX 100 ML IV SCH (10:53)
== END 2024-10-13 15:30 | disposition short-term general hospital (02) | DRG 638 ==
LOC: ER 06:54 → CVICU 09:51 → EDBEDREQ 10:01 → EDBEDREQTM 10:01 → ENRESERV 10:06
PROVIDERS: ADMIT Internal Medicine; ATTEND Internal Medicine
DX: E11.10 Type 2 diabetes mellitus with ketoacidosis without coma (principal); K86.1 Other chronic pancreatitis; N17.9 Acute kidney failure, unspecified; I10 Essential (primary) hypertension; Z87.891 Personal history of nicotine dependence; Z88.1 Allergy status to other antibiotic agents
CPT/HCPCS: 36415; 36600; 71045; 80048; 80051; 82375; 82805; 82962; 83735; 83930; 84100; 85025; 93005; 99291; A4606; J0360; J1308; J1650; J1815; J1885; J2270; J2405; J3475; J3480; J3490; J7030; J7042; J7050; J7060